=== PATIENT | male | born 1975 | race African-American/Black ===

== ENCOUNTER 2016-08-10 22:04 | Emergency (ER) | payer OTHER, SELFPAY ==
[~2016-08-10 22:04] MED LIST: LEVEMIR FL100 UNIT/1 SQ; LOPID600 MG PO; MELOXICAM15 MG PO; VITAMIN D PO
== END 2016-08-11 03:13 | disposition home or self-care (01) ==
LOC: CFTX 22:04 → CED 22:04 → CFTX 23:59
DX: H60.11 Cellulitis of right external ear (principal); E11.8 Type 2 diabetes mellitus with unspecified complications; Z23 Encounter for immunization
CPT/HCPCS: 69000; 90471; 90715; 99282

== ENCOUNTER 2016-08-19 19:50 | Emergency (ER) | payer OTHER, SELFPAY | END 2016-08-19 21:49 | disposition home or self-care (01) | LOC: CFTX 19:50 → CED 19:50 → CFTX 20:30 | DX: S00.431A Contusion of right ear, initial encounter (principal); H92.02 Otalgia, left ear; F17.210 Nicotine dependence, cigarettes, uncomplicated; X58.XXXA Exposure to other specified factors, initial encounter; Y92.9 Unspecified place or not applicable | CPT/HCPCS: 69000; 99282 ==